=== PATIENT | female | born 1990 | race Hispanic/Latino ===

== ENCOUNTER 2018-09-14 10:28 | Emergency (ER) | payer BC, OTHER ==
[2018-09-14 10:34] VITALS: RESP 20; TEMP 98.2; O2SAT 99
--- NOTE | 2018-09-14 11:26 | ED PDOC ---
HPI: Female Pain Time Seen by Provider: 09/14/18 11:03 Chief Complaint (Nursing): Female Genitourinary Chief Complaint (Provider): dysuria History Per: Patient (28 y/o female here with multiple complaints. States she is most concerned about dysuria noted today while urinating. States she has also had daily nausea associated with belching and has tried to adjust diet. No h/o surgeries.) Past Medical History Reviewed: Historical Data, Nursing Documentation, Vital Signs Vital Signs: Last Vital Signs Temp 98.2 F 09/14/18 10:33 Pulse 99 H 09/14/18 10:33 Resp 20 09/14/18 10:33 BP 141/94 H 09/14/18 10:33 Pulse Ox 99 09/14/18 10:33 - Medical History PMH: Asthma - Surgical History Surgical History: Appendectomy - Family History Family History: States: Unknown Family Hx - Home Medications Home Medications: Ambulatory Orders Medication Instructions Recorded Fluticasone Propionate [Flonase] 1 spr NS BID #1 spr 10/20/15 Guaifenesin/Pseudoephedrne HCl 1 tab PO DAILY PRN #30 ter 10/20/15 [Mucinex D 600 mg-60 mg] Nystatin [Nystatin Oral Susp] 5 ml PO QID #1 ml 03/15/16 Nystatin [Nystatin Oral Susp] 5 ml PO QID #1 bottle 04/04/16 Penicillin VK [Penicillin VK Tab] 500 mg PO QID #28 tab 04/04/16 Famotidine [Pepcid] 20 mg PO BID #10 tab 09/14/18 Sulfamethoxazole/Trimethoprim 1 each PO BID #6 tablet 09/14/18 [Bactrim Ds Tablet] - Allergies Allergies/Adverse Reactions: Allergies Allergy/AdvReac Type Severity Reaction Status Date / Time No Known Allergies Allergy Verified 09/14/18 10:51 Review of Systems ROS Statement: Except As Marked, All Systems Reviewed And Found Negative Physical Exam - Reviewed Nursing Documentation Reviewed: Yes Vital Signs Reviewed: Yes - Physical Exam Appears: Positive for: Well, Non-toxic, No Acute Distress Head Exam: Positive for: ATRAUMATIC, NORMAL INSPECTION, NORMOCEPHALIC Skin: Positive for: Normal Color, Warm, DRY Eye Exam: Positive for: EOMI, Normal appearance, PERRL ENT: Positive for: Normal ENT Inspection Neck: Positive for: Normal, Painless ROM Cardiovascular/Chest: Positive for: Regular Rate, Rhythm Respiratory: Positive for: CNT, Normal Breath Sounds Gastrointestinal/Abdominal: Positive for: Normal Exam, Soft Back: Positive for: Normal Inspection Extremity: Positive for: Normal ROM Neurologic/Psych: Positive for: Alert, Oriented - Laboratory Results Urine POC: Negative Urine dip results: Positive for: Leukocyte Esterase. Negative for: Blood, Nitrate, Ketones, Glucose, Bilirubin - ECG O2 Sat by Pulse Oximetry: 99 Disposition - Clinical Impression Clinical Impression: Urinary tract infection, Gastritis - Patient ED Disposition Is Patient to be Admitted: No - Disposition Disposition: Routine/Home Disposition Time: 12:01 Condition: FAIR Prescriptions: Famotidine [Pepcid] 20 mg PO BID #10 tab Sulfamethoxazole/Trimethoprim [Bactrim Ds Tablet] 1 each PO BID #6 tablet Instructions: Urinary Tract Infections in Adults, Gastritis, Ulcer and Gas tritis Diet Forms: [facility] ED School/Work Excuse
[2018-09-14 12:29] VITALS: BP 139/87; PULSE 84
[2018-09-14 12:40] LABS: SQUAMOUS EPITHIAL < 1 /hpf (0-5); URINE BILIRUBIN NEGATIVE (NEGATIVE); URINE BLOOD NEGATIVE (NEGATIVE); URINE CLARITY CLEAR (Clear); URINE COLOR STRAW (YELLOW); URINE GLUCOSE (UA) NEG (Normal); URINE LEUKOCYTE ESTERASE NEG Leu/uL (Negative); URINE PROTEIN NEGATIVE (NEGATIVE); URINE UROBILINOGEN 0.2-1.0 mg/dL (0.2-1.0)
== END 2018-09-14 12:28 | disposition home or self-care (01) ==
LOC: H.ER 10:28
DX: N39.0 Urinary tract infection, site not specified (principal); K29.70 Gastritis, unspecified, without bleeding